=== PATIENT | female | born 1950 | race Caucasian/White ===

== ENCOUNTER → 2016-04-22 | Outpatient (CLI) | payer OTHER, MEDICARE ==
[~2016-04-22] MED LIST: ACET-2321 PO; ASPI325T PO; CALC-494 PO; CHOL200026 PO; DIPH25CA84 PO; LACT1CAP46 PO; LEVO200T3 PO; LEVO300T4 PO; LORA10TA62 PO; METF10002 PO; METF500T4 PO; MULT-934 PO; ONDA4TAB7 PO; OXYC5TAB84 PO; PANT40TA25 PO; PYRI50TA24 PO; SIMV40TA5 PO; VITA400T7 PO; [UNRECOGNIZED DRUG - CODE] PO
== END ==
LOC: NWCC 09:52
PROVIDERS: ATTEND Internal Medicine
DX: T66.XXXA Radiation sickness, unspecified, initial encounter (principal); S21.001A Unspecified open wound of right breast, initial encounter; Y83.8 Other surgical procedures as the cause of abnormal reaction of the patient, or of later complication, without mention of misadventure at the time of the procedure

== ENCOUNTER → 2016-04-24 | Outpatient (CLI) | payer OTHER, MEDICARE | LOC: NWCC 10:22 | PROVIDERS: ATTEND Internal Medicine | DX: S21.001A Unspecified open wound of right breast, initial encounter (principal); E11.9 Type 2 diabetes mellitus without complications; L59.8 Other specified disorders of the skin and subcutaneous tissue related to radiation | CPT/HCPCS: 82948; 99183; A6210 ==

== ENCOUNTER → 2016-04-25 | Outpatient (CLI) | payer OTHER, MEDICARE | LOC: NWCC 10:22 | PROVIDERS: ATTEND Internal Medicine | DX: S21.001A Unspecified open wound of right breast, initial encounter (principal); E11.9 Type 2 diabetes mellitus without complications; L59.8 Other specified disorders of the skin and subcutaneous tissue related to radiation | CPT/HCPCS: 82948; 99183 ==

== ENCOUNTER → 2016-04-26 | Outpatient (CLI) | payer OTHER, MEDICARE | LOC: NWCC 09:57 | PROVIDERS: ATTEND Orthopaedic Surgery | DX: S21.001A Unspecified open wound of right breast, initial encounter (principal); E11.9 Type 2 diabetes mellitus without complications; L59.8 Other specified disorders of the skin and subcutaneous tissue related to radiation | CPT/HCPCS: 82948; 99183 ==

== ENCOUNTER → 2016-04-30 | Outpatient (CLI) | payer OTHER, MEDICARE | LOC: NWCC 11:25 | PROVIDERS: ATTEND Surgery | DX: S21.001A Unspecified open wound of right breast, initial encounter (principal); L59.8 Other specified disorders of the skin and subcutaneous tissue related to radiation ==

== ENCOUNTER → 2016-05-21 | Outpatient (CLI) | payer OTHER, MEDICARE | LOC: WC.BC 10:56 | PROVIDERS: ATTEND Obstetrics & Gynecology | DX: C50.911 Malignant neoplasm of unspecified site of right female breast (principal); N64.59 Other signs and symptoms in breast; Z85.3 Personal history of malignant neoplasm of breast | CPT/HCPCS: 77061; G0206 ==